=== PATIENT | male | born 1985 | race Caucasian/White ===

== ENCOUNTER 2016-07-11 21:37 | Emergency (ER) | payer BC ==
[2016-07-11] MEDS ORDERED: Tetan/Diph/Pertus SYR(Tdap)* 0.5 ML SYR(BOOSTRIX) use SYR IM ONE (21:49)
[2016-07-11 21:53] VITALS: BP 130/81
--- NOTE | 2016-07-11 21:55 | UC ---
General HPI - HPI Summary HPI Summary: 1. Thinks he may have a tiny piece of glass in foot. Stepped on glass last night. Got tweezers today and did get a tiny piece out, worried there may be more. Needs update on tetanus shot 2. Type I DM in family. Wants to check because he has felt shakey, sweaty, tingly in hands for past week off and on. Doesn't respond to food in particular. - History of Current Complaint Stated Complaint: POSSIBLE FOREIGN BODY RIGHT FOOT Time Seen by Provider: 07/11/16 21:47 Hx Obtained From: Patient Onset/Duration: Sudden Onset - last PM Timing: Constant Onset Severity: Mild Current Severity: Mild Associated Signs & Symptoms: Positive: Weakness - with intermittent shakey spells - Allergy/Home Medications Allergies/Adverse Reactions: Allergies Allergy/AdvReac Type Severity Reaction Status Date / Time Cefaclor [From [facility]] Allergy Hives Verified 07/11/16 21:53 Home Medications: Home Medications NK [No Home Medications Reported] 07/11/16 [History Confirmed 07/11/16] PMH/Surg Hx/FS Hx/Imm Hx Respiratory History Of: Reports: Asthma - CHILD - Surgical History Surgical History: Yes Surgery Procedure, Year, and Place: wisdm teeth - Family History Known Family History: Positive: Hypertension, Diabetes - Social History Occupation: Employed Full-time Lives: With Family Alcohol Use: Occasionally Substance Use Type: None Smoking Status (MU): Never Smoked Tobacco - Immunization History Most Recent Influenza Vaccination: NOT INB 2015 Review of Systems Constitutional: Negative Skin: Other - puncture wound on sole of right foot, distal 5th MT. Less than a millimeter wide. No bleeding. No palpable FB Eyes: Negative ENT: Negative Respiratory: Negative Cardiovascular: Negative Gastrointestinal: Negative Genitourinary: Negative Motor: Negative Neurovascular: Negative Musculoskeletal: Negative Neurological: Weakness, Paresthesia - numbness, tingling sometimes in hands with spells of sweating in past week Psychological: Negative All Other Systems Reviewed And Are Negative: Yes Physical Exam Triage Information Reviewed: Yes Appearance: Well-Appearing, No Pain Distress, Well-Nourished Vital Signs Reviewed: Yes Eye Exam: Normal Respiratory Exam: Normal Cardiovascular Exam: Normal Musculoskeletal Exam: Normal Neurological Exam: Normal Neurological: Positive: Alert, Muscle Tone Normal Psychological Exam: Normal Skin Exam: Other - less than 1mm wide puncture on sole of right foot over distal 5th MT. No palpable FB. Diagnostics - Laboratory Diagnostic Studies Completed/Ordered: fingerstick BG 111, HgbA1C sent. xray: tiny FB Course/Dx - Course Course Of Treatment: FB removed with magnifier and needle-tip forceps - Differential Dx - Multi-Symptom Provider Diagnoses: glass FB in foot, removed Discharge - Discharge Plan Condition: Stable Disposition: HOME Patient Education Materials: Soft Tissue Foreign Body (ED)
--- NOTE | 2016-07-11 22:17 | RAD ---
Indication: Stepped on glass. Clinical concern for foreign body near the fifth metatarsal distally. Comparison: None. Technique: AP and lateral views RIGHT foot. Report: 1 -- 2 mm radiopaque foreign body within the superficial plantar soft tissues at the level of the fourth metatarsal phalangeal joint. Surrounding soft tissue swelling. Negative for fracture or malalignment. IMPRESSION: 1 -- 2 mm radiopaque foreign body within the superficial plantar soft tissues at the level of the fourth metatarsal phalangeal joint. Correlate with clinical assessment for corresponding puncture wound.
== END 2016-07-11 22:24 | disposition home or self-care (01) ==
LOC: UCCORT 21:37
DX: S90.851A Superficial foreign body, right foot, initial encounter (principal); W45.8XXA Other foreign body or object entering through skin, initial encounter; Y93.9 Activity, unspecified; Y92.9 Unspecified place or not applicable; R53.1 Weakness; Z88.1 Allergy status to other antibiotic agents; Z23 Encounter for immunization
CPT/HCPCS: 36415; 83036; 90471; 90715; 99211; G0463

== ENCOUNTER 2016-07-13 10:33 | Emergency (ER) | payer BC ==
[2016-07-13 11:23] LABS: Hematocrit 43 % (42-52); Hemoglobin 14.8 g/dl (14.0-18.0); Mean Corpuscular HGB Conc 34 g/dl (31-36); Mean Corpuscular Hemoglobin 30 pg (27-31); Mean Corpuscular Volume 87 fL (80-94); Mean Platelet Volume 9 um3 (7.4-10.4); Red Cell Distribution Width 13 % (10.5-15); White Blood Count 12.8 10^3/ul (3.5-10.8)
[2016-07-13 11:26] LABS: Urine Bacteria Absent (Absent); Urine Bilirubin Negative (Negative); Urine Glucose Negative (Negative); Urine Nitrite Negative (Negative)
[2016-07-13 11:41] LABS: Albumin 4.2 g/dL (3.2-5.2); BUN/Creatinine Ratio 22.8 (8-20); C Reactive Protein 7.05 mg/L (< 5.00); Calcium 8.8 mg/dL (8.6-10.3); EGFR African American 148.1 (>60); EGFR Non-African American 115.2 (>60); Globulin 2.5 g/dL (2-4); Potassium 4.1 mmol/L (3.5-5.0); Total Bilirubin 0.7 mg/dL (0.2-1.0); Total Protein 6.7 g/dL (6.4-8.9)
--- NOTE | 2016-07-13 12:03 | RAD ---
INDICATION: Right testicular pain and swelling. COMPARISON: There are no prior studies available for comparison. TECHNIQUE: Multiple real-time images of the testicles were obtained including color Doppler images and Doppler tracings. FINDINGS: The testicles are normal in size, shape and echogenicity. The right testicle measured 5.3 x 2.4 x 3.5 cm and the left testicle measured 5.0 x 2.2 x 3.4 cm. No intratesticular mass is seen. There is symmetric vascular flow within both testicles. The epididymides appear to be within normal limits. There is a mildly enlarged right inguinal lymph node noted measuring 2.4 x 0.7 x 1.0 cm. IMPRESSION: 1. NO EVIDENCE FOR TESTICULAR TORSION OR EPIDIDYMITIS. 2. MILDLY ENLARGED RIGHT INGUINAL LYMPH NODE.
[2016-07-13] MEDS ORDERED: Iohexol 300* (CONTRAST) 10 ML SDV IV ONE (12:05)
--- NOTE | 2016-07-13 13:15 | RAD ---
Indication: Abdominal pain. Right scrotal pain. CT of the abdomen and pelvis was performed after oral contrast administration. No IV contrast was given. Coronal and sagittal reconstructed images were obtained. The lung bases demonstrate no pleural fluid, nodules or masses. Heart is of normal size without evidence of pericardial effusion. The liver is normal in size. No focal lesions or intrahepatic ductal dilatation is noted. The spleen is normal in size. Pancreas demonstrates no mass or pancreatic duct dilatation. The gallbladder demonstrates no calcified gallstones, pericholecystic fluid or wall thickening. The common duct is not dilated. No adrenal lesions are noted. The kidneys demonstrates no hydronephrosis. No retroperitoneal lymphadenopathy is noted. No dilated loops of bowel are noted. CT of the pelvis demonstrates no dilated loops of bowel. There is likely air within the normal-appearing appendix. No hernias are noted. Urinary bladder is a partially collapsed with mild wall thickening. No hernias are noted. The visualized bony structures are unremarkable. IMPRESSION: No evidence of obstructive uropathy is noted. Normal appendix. Mild wall thickening of the urinary bladder which may be due to nondistention however clinical correlation to evaluate for urinary tract infection is suggested.
[2016-07-13 14:01] VITALS: BP 110/60
--- NOTE | 2016-07-13 14:27 | ED ---
Mychal Liriano Adam, scribed for Sha Frances MD on 07/13/16 at 1346 . Progress - Progress Note Progress Note: This patient was signed out to me by Dr. Jauregui. I re-examined the patient at 13:45. He continues to c/o pain in his abdomen and CVA area. Patient will be discharged home with medication for his pain and nausea and he will follow up with his PCP. Course/Dx - Diagnoses Provider Diagnoses: Abdominal pain, Hematuria, Right testicular pain The documentation as recorded by the alexisibMychal caal Adam accurately reflects the service I personally performed and the decisions made by me, Sha Frances MD.
--- NOTE | 2016-07-22 09:46 | ED ---
Mychal Liriano Adam, scribed for Hubert Jauregui MD on 07/13/16 at 1105 . Abdominal Pain/Male - HPI Summary HPI Summary: Pt is a 30 year old male presenting with abdominal pain that set on this morning. It is accompanied by lower back pain and nausea without vomiting or diarrhea. Pt also has a dull pain in his right testicle that set on 2 days ago and has been constant since. He also reports that the testicle seems swollen. He denies dysuria, hematuria, and discharge. Negative Hx of hernia repair or STD 's. PMHx of asthma and shingles. - History of Current Complaint Chief Complaint: EDAbdPain Stated Complaint: RT SIDE ABD/TESTICLE/BACK PAIN Time Seen by Provider: 07/13/16 10:56 Hx Obtained From: Patient Onset/Duration: Sudden Onset, Lasting Hours, Still Present Timing: Constant, Lasting Hours Severity Initially: Moderate Severity Currently: Moderate Pain Intensity: 8 Pain Scale Used: 0-10 Numeric Location: Diffuse, Other - Right testicle Radiates: Yes Radiates to: Back - Lower Character: Dull Aggravating Factor(s): Nothing Alleviating Factor(s): Nothing Associated Signs And Symptoms: Positive: Nausea, Other - Right testicle swelling. Negative: Urinary Symptoms, Vomiting, Diarrhea - Allergies/Home Medications Allergies/Adverse Reactions: Allergies Allergy/AdvReac Type Severity Reaction Status Date / Time Cefaclor [From [facility]] Allergy Hives Verified 07/13/16 10:37 PMH/Surg Hx/FS Hx/Imm Hx Respiratory History: Reports: Hx Asthma - CHILD - Surgical History Surgery Procedure, Year, and Place: wisdm teeth Infectious Disease History: No Infectious Disease History: Reports: Hx Shingles Denies: Traveled Outside the [place] in Last 30 Days - Family History Known Family History: Positive: Hypertension, Diabetes, Other - Kidney stones - Social History Occupation: Employed Full-time Lives: With Family - Father Alcohol Use: Occasionally Hx Substance Use: No Substance Use Type: Reports: None Hx Tobacco Use: No Smoking Status (MU): Never Smoked Tobacco Review of Systems Positive: Abdominal Pain, Nausea. Negative: Vomiting, Diarrhea Positive: other - Right testicular pain. Negative: dysuria, discharge, hematuria Positive: Myalgia - Lower back, Edema - Right testicle All Other Systems Reviewed And Are Negative: Yes Physical Exam - Summary Physical Exam Summary: GENERAL: Awake, alert, oriented, no acute distress, very pleasant HEENT: Head is normocephalic, atraumatic, anicteric sclera, pink conjunctiva, mucous membranes moist, no erythema, no discharge, no lesions, neck is supple, trachea is midline, no JVD CARDIAC: Regular rate and rhythm, S1, S2, no rub, no murmur, no gallop, 2+ radial and pedal pulses bilaterally RESPIRATORY: Clear to auscultation bilaterally with no rales, rhonchi, or wheezes, non-tender ABDOMEN: Bowel sounds positive, no bruit, soft, non-tender, no tenderness over McBurneys point, negative Orbisonia sign, negative Psoas sign, 2+ femoral pulses , no CVA tenderness EXTREMITIES: No edema, warm, dry, moving all extremities in a grossly normal manner NEUROLOGICAL: Mood is appropriate, moving all extremities in a grossly normal manner Triage Information Reviewed: Yes Vital Signs On Initial Exam: Initial Vitals Temp Pulse Resp BP Pulse Ox 99.6 F 121 16 121/57 100 07/13/16 10:35 07/13/16 10:35 07/13/16 10:35 07/13/16 10:35 07/13/16 10:35 Vital Signs Reviewed: Yes Diagnostics - Vital Signs Vital Signs Temp Pulse Resp BP Pulse Ox 07/13/16 10:35 99.6 F 121 16 121/57 100 - Laboratory Result Diagrams: 07/13/16 11:07 07/13/16 11:07 Lab Statement: Any lab studies that have been ordered have been reviewed, and results considered in the medical decision making process. - Additional Comments Diagnostic Additional Comments: TESTICULAR ULTRASOUND - IMPRESSION: 1. NO EVIDENCE FOR TESTICULAR TORSION OR EPIDIDYMITIS. 2. MILDLY ENLARGED RIGHT INGUINAL LYMPH NODE. Abdominal Pain Fem Course/Dx - Diagnoses Provider Diagnoses: Abdominal pain, Hematuria, Right testicular pain Discharge - Discharge Plan Condition: Stable Disposition: HOME Prescriptions: HYDROcodone/ACETAMIN 5-325 MG* [[place] 5-325 TAB*] 1 tab PO Q6H PRN #20 tab MDD 4 PRN Reason: pain Ondansetron ODT TAB* [Zofran Odt TAB*] 4 mg PO Q8H PRN #20 tab.odt PRN Reason: nausea Patient Education Materials: Testicle Pain (ED), Abdominal Pain (ED), Hematuria (ED) Forms: *Work Release Referrals: Raymundo Arce MD [Primary Care Provider] - Additional Instructions: Follow up with Dr. Arce in 1-2 days. The documentation as recorded by the Mychal valdivia Adam accurately reflects the service I personally performed and the decisions made by , Hubert Jauregui MD.
== END 2016-07-13 13:59 | disposition home or self-care (01) ==
LOC: ED 10:33
DX: N50.811 Right testicular pain (principal); R10.84 Generalized abdominal pain; R31.9 Hematuria, unspecified
CPT/HCPCS: 36415; 74176; 76870; 80053; 81003; 81015; 83605; 83690; 85025; 86140; 99282

== ENCOUNTER 2016-07-13 23:13 | Emergency (ER) | payer BC ==
[2016-07-13] MEDS ORDERED: NS 0.9% 1000 ML* 1,000 ML IV ONE (23:54)
--- NOTE | 2016-07-13 23:58 | ED ---
Abdominal Pain/Male - HPI Summary HPI Summary: Patient presents with continued abdominal and back pain that he was evaluated in this ED for this AM. His CT abd/pelvis and testicular US were negative for acute findings. Lab work showed WBC of 12.8 with elevated neutrophils of 92.1. His abdominal pain is diffuse and he has still not had a bowel movement. His back pain is over the central sacrum without radiation. He had one episode of retching this AM but no nausea or vomiting. He had a temperature of 100.5 today that he did not treat in hopes it would resolve. He is concerned for a mass in his colon or bladder. He denies urinary symptoms. He has not had an appetite today but has consumed water without issue. - History of Current Complaint Chief Complaint: EDAbdPain Stated Complaint: ABD PAIN/FEVER Time Seen by Provider: 07/13/16 23:18 Hx Obtained From: Patient, Family/Lathe Scalper Operator Onset/Duration: Gradual Onset, Still Present Timing: Constant Severity Initially: Moderate Severity Currently: Moderate Pain Intensity: 6 Location: Diffuse - abdominal pain and sacrum pain Radiates: No Character: Dull Aggravating Factor(s): Nothing Alleviating Factor(s): Nothing Associated Signs And Symptoms: Positive: Fever - 100.5 at home, Back Pain, Constipation, Decreased Appetite - Allergies/Home Medications Allergies/Adverse Reactions: Allergies Allergy/AdvReac Type Severity Reaction Status Date / Time Cefaclor [From [facility]] Allergy Hives Verified 07/13/16 10:37 PMH/Surg Hx/FS Hx/Imm Hx Endocrine/Hematology History: Denies: Hx Diabetes Cardiovascular History: Denies: Hx Hypertension Respiratory History: Reports: Hx Asthma - CHILD History: Denies: Hx Renal Disease - Surgical History Surgery Procedure, Year, and Place: wisdm teeth Infectious Disease History: No Infectious Disease History: Reports: Hx Shingles Denies: Traveled Outside the [place] in Last 30 Days - Family History Known Family History: Positive: Hypertension, Diabetes - Social History Occupation: Employed Full-time Lives: With Family Alcohol Use: Occasionally Substance Use Type: Reports: None Smoking Status (MU): Never Smoked Tobacco Review of Systems Positive: Fever - 100.5 at home. Negative: Chills, Fatigue Negative: Sore Throat, Ear Ache Negative: Chest Pain Negative: Shortness Of Breath Positive: Abdominal Pain. Negative: Vomiting, Diarrhea, Nausea Negative: Edema Negative: Headache, Weakness All Other Systems Reviewed And Are Negative: Yes Physical Exam Triage Information Reviewed: Yes Vital Signs On Initial Exam: Initial Vitals Temp Pulse Resp BP Pulse Ox 99.6 F 120 20 122/73 100 07/13/16 23:15 07/13/16 23:15 07/13/16 23:15 07/13/16 23:15 07/13/16 23:15 Vital Signs Reviewed: Yes Appearance: Positive: Well-Appearing, No Pain Distress, Well-Nourished Skin: Positive: Warm, Skin Color Reflects Adequate Perfusion, Dry, Soft Head/Face: Positive: Normal Head/Face Inspection Eyes: Positive: EOMI, KATRINA, Conjunctiva Clear ENT: Positive: Hearing grossly normal, Pharynx normal Neck: Positive: Supple, Nontender, No Lymphadenopathy Respiratory/Lung Sounds: Positive: Clear to Auscultation, Breath Sounds Present Cardiovascular: Positive: Tachycardia Abdomen Description: Positive: Soft. Negative: Nontender - diffusely tender to light and deep palpation, CVA Tenderness (R), CVA Tenderness (L), Distended, Guarding, Hepatomegaly, Pulsatile Mass, Splenomegaly Bowel Sounds: Positive: Present Musculoskeletal: Positive: Strength/ROM Intact. Negative: Edema Left, Edema Right Neurological: Positive: Sensory/Motor Intact, Alert, Oriented to Person Place, Time, NV Bundle Intact Distally Psychiatric: Positive: Affect/Mood Appropriate AVPU Assessment: Alert Diagnostics - Vital Signs Vital Signs Temp Pulse Resp BP Pulse Ox 07/13/16 23:15 99.6 F 120 20 122/73 100 - Laboratory Result Diagrams: 07/14/16 00:06 07/14/16 00:06 Lab Statement: Any lab studies that have been ordered have been reviewed, and results considered in the medical decision making process. - Radiology No standard instances Xray Interpretation: No Acute Changes Radiology Interpretation Completed By: ED Physician - X-ray discussed with Dr. Franklin and Birgit- contrast is present throughout the bowel to the rectum. Abdominal Pain Fem Course/Dx - Course Course Of Treatment: Patient's lab and x-ray were discussed with Dr. Franklin, ED attending, and Dr. Genao with hospital medicine. It was recommended the patient be discharged home with a dose of magnesium citrate with instructions to return to the emergency department if his symptoms worsen and to use the magnesium citrate if his constipation continued. - Diagnoses Differential Diagnosis/HQI/PQRI: Appendicitis, Bowel Obstruction, Constipation, Gall Bladder Disease, Ischemic Bowel, Renal Colic, Testicular Torsion, Urinary Tract Infection Provider Diagnoses: Abdominal pain Discharge - Discharge Plan Condition: Stable Disposition: HOME Patient Education Materials: Abdominal Pain (ED) Referrals: Raymundo Arce MD [Primary Care Provider] - Additional Instructions: Please continue to monitor yourself while drinking extra fluids and consuming a bland diet. If your constipation continues you can use the dose of magnesium citrate you have been given. If your symptoms worsen, return to the emergency department.
[2016-07-14 00:25] LABS: Hematocrit 42 % (42-52); Hemoglobin 14.5 g/dl (14.0-18.0); Mean Corpuscular HGB Conc 35 g/dl (31-36); Mean Corpuscular Hemoglobin 30 pg (27-31); Mean Corpuscular Volume 86 fL (80-94); Mean Platelet Volume 9 um3 (7.4-10.4); Red Blood Count 4.86 10^6/ul (4.0-5.4); Red Cell Distribution Width 13 % (10.5-15); White Blood Count 8.6 10^3/ul (3.5-10.8)
[2016-07-14 00:33] LABS: BUN/Creatinine Ratio 18.2 (8-20); C Reactive Protein 49.06 mg/L (< 5.00); Calcium 8.7 mg/dL (8.6-10.3); EGFR African American 152.6 (>60); EGFR Non-African American 118.6 (>60); Globulin 2.5 g/dL (2-4); Potassium 3.6 mmol/L (3.5-5.0); Total Bilirubin 0.8 mg/dL (0.2-1.0); Total Protein 6.5 g/dL (6.4-8.9)
[2016-07-14 00:36] LABS: Urine Bacteria Absent (Absent); Urine Bilirubin Negative (Negative); Urine Glucose Negative (Negative); Urine Nitrite Negative (Negative)
[2016-07-14] MEDS ORDERED: Magnesium CITRATE* 300 ML BTL PO ONE (00:54)
[2016-07-14 01:33] VITALS: BP 117/69
--- NOTE | 2016-07-14 07:34 | RAD ---
HISTORY: Abdominal pain COMPARISONS: CT dated July 13, 2016 VIEWS: Frontal views of the abdomen. FINDINGS: BOWEL: There is a nonspecific bowel gas pattern, with nondilated small bowel gas noted. Oral contrast is noted within the colon. CALCULI: There are no abnormal calculi. BONES AND SOFT TISSUES: There are no osseous abnormalities. Incidentally noted is a dysraphic defect of a transitional S1 vertebral body. OTHER FINDINGS: The lung bases are clear. There is no subphrenic gas. IMPRESSION: NONOBSTRUCTIVE BOWEL GAS PATTERN. ORAL CONTRAST IS NOTED WITHIN THE COLON.
== END 2016-07-14 01:32 | disposition home or self-care (01) ==
LOC: ED 23:13
DX: R10.84 Generalized abdominal pain (principal); M53.3 Sacrococcygeal disorders, not elsewhere classified; R50.9 Fever, unspecified; K59.00 Constipation, unspecified; Z88.1 Allergy status to other antibiotic agents
CPT/HCPCS: 36415; 74000; 80053; 81003; 85025; 86140; 99284; A9270-GY

== ENCOUNTER 2016-07-15 21:14 | Emergency (ER) | payer BC ==
[2016-07-15 21:22] VITALS: BP 132/83
--- NOTE | 2016-07-15 21:32 | UC ---
Cardiac HPI - History of Current Complaint Chief Complaint: UCChestPain Stated Complaint: FATIGUE/SHORTNESS BREATH/CHEST PAIN Time Seen by Provider: 07/15/16 21:23 Hx Obtained From: Patient Onset/Duration: Sudden Onset - this morning Initial Severity: Mild Current Severity: Mild Chest Pain Location: Mid Sternal Character: Tightness Aggravating: Deep Breaths Associated Signs & Symptoms: Positive: Chest Pain, Recent Stress, SOB, Palpitations - feels like heart is pounding out of his chest. Typically once a day. - Risk Factors Pulmonary Embolism Risk Factors: Negative Cardiac Risk Factors: Negative Atrial Fibrillation: Negative TAD Risk Factors: Negative - Allergy/Home Medications Allergies/Adverse Reactions: Allergies Allergy/AdvReac Type Severity Reaction Status Date / Time Cefaclor [From [facility]] Allergy Hives Verified 07/15/16 21:22 Home Medications: Home Medications NK [No Home Medications Reported] 07/15/16 [History Confirmed 07/15/16] PMH/Surg Hx/FS Hx/Imm Hx Endocrine History Of: Denies: Diabetes Cardiovascular History Of: Denies: Hypertension Respiratory History Of: Reports: Asthma - CHILD GI/ History Of: Denies: Renal Disease - Surgical History Surgical History: Yes Surgery Procedure, Year, and Place: wisdm teeth - Family History Known Family History: Positive: Hypertension, Diabetes - Social History 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 Lives: With Family Alcohol Use: None Substance Use Type: None Smoking Status (MU): Never Smoked Tobacco Have You Smoked in the Last Year: No - Immunization History Most Recent Influenza Vaccination: NOT INB 2015 Review of Systems Respiratory: Shortness Of Breath, Cough Cardiovascular: Chest Pain All Other Systems Reviewed And Are Negative: Yes Physical Exam Triage Information Reviewed: Yes Appearance: Well-Appearing, No Pain Distress, Well-Nourished Vital Signs: Initial Vital Signs Temp 98.6 F 07/15/16 21:18 Pulse 87 07/15/16 21:18 Resp 16 07/15/16 21:18 BP 132/83 07/15/16 21:18 Pulse Ox 100 07/15/16 21:18 Vital Signs Reviewed: Yes Eyes: Positive: Conjunctiva Clear ENT: Positive: Pharynx normal, TMs normal Neck exam: Normal Respiratory Exam: Normal Cardiovascular Exam: Normal Abdominal Exam: Normal Musculoskeletal Exam: Normal Neurological Exam: Normal Psychological Exam: Normal Skin Exam: Normal Diagnostics - EKG Cardiac Rate: NL Cardiac Rhythm: Sinus: Normal - Short TN interval Ectopy: None ST Segment: Normal - Differential Diagnoses - Chest Pain Differential Diagnosis/HQI/PQRI: Angina, Chest Wall - Clinical Impression Provider Diagnoses: Chest pain, not cardiac. Short TN interval. Palpitations Discharge - Discharge Plan Condition: Stable Disposition: HOME Patient Education Materials: Noncardiac Chest Pain (ED), Palpitations (ED) Referrals: Raymundo Arce MD [Primary Care Provider] - 2 Weeks (Referral to coffee shop aide for short TN interval on EKG.)
== END 2016-07-15 21:52 | disposition home or self-care (01) ==
LOC: UCCORT 21:14
DX: R07.89 Other chest pain (principal); R94.31 Abnormal electrocardiogram [ECG] [EKG]; R00.2 Palpitations; Z88.1 Allergy status to other antibiotic agents
CPT/HCPCS: 93005; 99211; G0463

== ENCOUNTER 2016-11-11 17:30 | Emergency (ER) | payer BC ==
--- NOTE | 2016-11-11 19:11 | UC ---
Abdominal Pain Male HPI - History of Current Complaint Chief Complaint: UCAbdominalPain Stated Complaint: PERSONAL Time Seen by Provider: 11/11/16 19:00 Hx Obtained From: Patient Onset/Duration: Gradual Onset - on and off over the last couple of months., Still Present - lower abdominal pain, right groin and lower back pain on the lower right., Worse Since - blood and black stool. Took peptobismol 2 days ago. Severity Initially: Mild Severity Currently: Mild Location: Suprapubic Radiates: Yes Radiates to: Back, Inguinal - right Character: Aching, Dull Aggravating Factor(s):: Nothing Alleviating Factor(s): Spontaneous Resolution - but walking may help a little. Associated Signs And Symptoms: Positive: Chest Pain - occasionally with GERD, Blood in Stool - around the stool, which turned black from the Peptobismal. Negative: Fever, Cough, Nausea, Vomiting, Diarrhea Similar Episode/Dx As:: anal fissure. - Allergies/Home Medications Allergies/Adverse Reactions: Allergies Allergy/AdvReac Type Severity Reaction Status Date / Time Cefaclor [From [facility]] Allergy Hives Verified 11/11/16 18:14 PMH/Surg Hx/FS Hx/Imm Hx Endocrine History Of: Denies: Diabetes Cardiovascular History Of: Denies: Hypertension Respiratory History Of: Reports: Asthma - CHILD GI/ History Of: Denies: Renal Disease - Surgical History Surgical History: Yes Surgery Procedure, Year, and Place: wisdm teeth - Family History Known Family History: Positive: Hypertension, Diabetes - Social History 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8 F 11/11/16 18:06 Pulse 112 11/11/16 18:06 Resp 18 11/11/16 18:06 BP 152/82 11/11/16 18:06 Pulse Ox 100 11/11/16 18:06 Vital Signs Reviewed: Yes Eye Exam: Normal ENT: Positive: Pharynx normal, TMs normal. Negative: Nasal congestion Neck exam: Normal Respiratory Exam: Normal Cardiovascular Exam: Normal Abdomen Description: Positive: Nontender, No Organomegaly, Other: - anterior anal fissure with bleeding Bowel Sounds: Positive: Present Musculoskeletal Exam: Normal Neurological Exam: Normal Psychological Exam: Normal Skin Exam: Normal Abd Pain Male Course/Dx - Differential Dx/Clinical Impression Differential Diagnosis/HQI/PQRI: Constipation, Testicular Torsion, Ureteral Stone Provider Diagnoses: Anal fissure Discharge - Discharge Plan Condition: Stable Disposition: HOME Prescriptions: Nitroglycerin 2% OINT* 1 applic TOPICAL SEE INSTRUCTIONS #60 gm Patient Education Materials: Anal Fissure (ED), Nitroglycerin (Into the rectum) Referrals: Osiris Longoria MD [Primary Care Provider] - 2 Weeks (Recheck on the rectal bleeding and blood pressure.) Additional Instructions: The black stool is likely due to the Peptobismal. Please do not use it unless directed by a health care provider.
[2016-11-11 19:52] VITALS: BP 145/89
== END 2016-11-11 19:52 | disposition home or self-care (01) ==
LOC: UCCORT 17:30
DX: K60.2 Anal fissure, unspecified (principal); M54.5 Low back pain; R31.9 Hematuria, unspecified; J45.909 Unspecified asthma, uncomplicated; Z88.1 Allergy status to other antibiotic agents
CPT/HCPCS: 99212; G0463

== ENCOUNTER 2018-01-12 19:54 | Emergency (ER) | payer SELFPAY ==
[2018-01-12 20:10] VITALS: BP 136/96
--- NOTE | 2018-01-12 20:31 | UC ---
Hand/Wrist HPI - HPI Summary HPI Summary: Patient fell while jogging 2 days ago landing on his left hand patient has swelling and bruising and discrete tenderness in the fourth finger proximally - History Of Current Complaint Chief Complaint: UCUpperExtremity Stated Complaint: LEFT HAND INJURY Time Seen by Provider: 01/12/18 20:24 Hx Obtained From: Patient Mechanism Of Injury: fall Onset/Duration: Sudden Onset, Lasting Days - 2 Pain Intensity: 2 Pain Scale Used: 0-10 Numeric Character Of Pain: Aching, Throbbing Aggravating Factor(s): Movement Alleviating Factor(s): Rest, Ice Associated Signs And Symptoms: Positive: Swelling, Bruising Related History: Dominant Hand Right - Allergies/Home Medications Allergies/Adverse Reactions: Allergies Allergy/AdvReac Type Severity Reaction Status Date / Time cefaclor [From [facility]] Allergy Hives Verified 01/12/18 20:05 Home Medications: Home Medications PARoxetine HCL TAB* [Paxil TAB*] 30 mg DAILY 01/12/18 [History Confirmed ] PMH/Surg Hx/FS Hx/Imm Hx Previously Healthy: No Psychological History: Depression - Surgical History Surgical History: Yes Surgery Procedure, Year, and Place: wisdom teeth - Family History Known Family History: Positive: Hypertension, Diabetes - Social History Occupation: Employed Full-time Lives: With Family Alcohol Use: Weekly Substance Use Type: None Smoking Status (MU): Never Smoked Tobacco Have You Smoked in the Last Year: No - Immunization History Most Recent Influenza Vaccination: NOT INB 2015 Most Recent Tetanus Shot: UTD Review of Systems Constitutional: Negative Skin: Bruising - left hand Eyes: Negative ENT: Negative Respiratory: Negative Cardiovascular: Negative Gastrointestinal: Negative Genitourinary: Negative Motor: Negative Neurovascular: Negative Musculoskeletal: Arthralgia - left hand 4th MC and finger, Edema Neurological: Negative Psychological: Negative Is Patient Immunocompromised?: No All Other Systems Reviewed And Are Negative: Yes Physical Exam Triage Information Reviewed: Yes Appearance: Well-Appearing, No Pain Distress, Well-Nourished Vital Signs: Initial Vital Signs Temp 98.5 F 01/12/18 20:06 Pulse 77 01/12/18 20:06 Resp 16 01/12/18 20:06 BP 136/96 01/12/18 20:06 Pulse Ox 100 01/12/18 20:06 Vital Signs Reviewed: Yes Eye Exam: Normal Eyes: Positive: Conjunctiva Clear ENT Exam: Normal ENT: Positive: Normal ENT inspection, Hearing grossly normal. Negative: Trismus , Muffled voice, Hoarse voice Dental Exam: Normal Neck exam: Normal Neck: Positive: Supple, Nontender Respiratory Exam: Normal Respiratory: Positive: Chest non-tender, No respiratory distress, No accessory muscle use Cardiovascular Exam: Normal Cardiovascular: Positive: RRR, Pulses Normal, Brisk Capillary Refill Musculoskeletal Exam: Other Musculoskeletal: Positive: Strength Limited @ - left 3,4,5 fingers, ROM Limited @ - left 3,4,5 fingers, Edema @ - left hand Neurological Exam: Normal Neurological: Positive: Alert Psychological Exam: Normal Skin Exam: Normal Diagnostics - Radiology No standard instances Xray Interpretation: Positive (See Comments) - Patient Name: MARCELO CARTER Medical Record#: [id number] Ordering Physician: Iza Bains NP Acct.#: [id number] : 1985 Age: 32 Sex: M Location: [facility] Exam Date: 01/12/182027 ADM Status: REG ER Order Information: HAND - LEFT MINIMUM 3 VIEWS Accession Number: [id number] CPT: 50042 INDICATION: Left hand injury. TECHNIQUE: 4 views of the left hand were obtained. FINDINGS: There is soft tissue swelling present dorsal to the metacarpal bones and proximal phalanges. There is a transverse slightly impacted fracture of the proximal metaphysis of the fourth proximal phalanx. No other fractures are seen. IMPRESSION: TRANSVERSE SLIGHTLY IMPACTED FRACTURE OF THE FOURTH PROXIMAL PHALANX. <Electronically signed by Jeremias Burrows MD in OV> 01/12/182053 Dictated By: Jeremias Burrows MD Dictated Date/ Time: 01/12/182053 Transcribed Date/Time: 01/12/182049 Copy to: CC:Iza Bains NP; You Barrios MD; Quinn Smith MD Imaging - [facility] [address] [address] ph ) ph [phone]) ph ([phone]) 1 of 1 Radiology Interpretation Completed By: ED Physician Re-Evaluation - Re-Evaluation First Eval Change: Improved - splint and clover wrap applied by this engineering writer-n/m/c intact before and after splinting--patient chinedu well Hand/Wrist Course/Dx - Course Course Of Treatment: Splint and clover tape sling rest ice elevation Tylenol ibuprofen for pain follow with Dr. Townsend in the next 1-2 days - Differential Dx/Diagnosis Provider Diagnoses: transverse impacted fracture base of 4th left finger Discharge - Sign-Out/Discharge Documenting (check all that apply): Discharge/Admit/Transfer - Discharge Plan Condition: Stable Disposition: HOME Patient Education Materials: Ibuprofen (By mouth), Finger Fracture (ED), R.I.C.E. Treatment (ED) Referrals: Neftali Townsend MD [Medical Doctor] - 2 Days Quinn Smith MD [Primary Care Provider] - - Billing Disposition and Condition Condition: STABLE Disposition: Home
--- NOTE | 2018-01-12 20:58 | RAD ---
INDICATION: Left hand injury. TECHNIQUE: 4 views of the left hand were obtained. FINDINGS: There is soft tissue swelling present dorsal to the metacarpal bones and proximal phalanges. There is a transverse slightly impacted fracture of the proximal metaphysis of the fourth proximal phalanx. No other fractures are seen. IMPRESSION: TRANSVERSE SLIGHTLY IMPACTED FRACTURE OF THE FOURTH PROXIMAL PHALANX.
== END 2018-01-12 21:16 | disposition home or self-care (01) ==
LOC: UCCORT 19:54
DX: S62.615A Displaced fracture of proximal phalanx of left ring finger, initial encounter for closed fracture (principal); W19.XXXA Unspecified fall, initial encounter; Y93.02 Activity, running; Y92.9 Unspecified place or not applicable; Z88.1 Allergy status to other antibiotic agents; F32.9 Major depressive disorder, single episode, unspecified
CPT/HCPCS: 99213; G0463